=== PATIENT | female | born 2000 | race American Indian/Alaskan Native ===

== ENCOUNTER 2020-05-24 12:27 | Inpatient (IN) | payer OTHER ==
[2020-05-24] MEDS ORDERED: LACTATED RINGERS 1,000 ML IV SCH ×2 (12:30→15:00)
--- NOTE | 2020-05-24 14:56 | History and Physical Report ---
History of Present Illness Date of examination: 05/24/20 Chief complaint: IUFD History of present illness: 19-year-old -0-1-2 at 25-0/7 weeks admitted with intrauterine . One visit at [facility] OB problem list: Anemia HSV-2 Sickle cell trait Varicella nonimmune Vitamin D deficiency labs: O+ Hemoglobin 10.3 Rubella immune VDRL nonreactive HBsAg negative HIV negative Platelets 349 Varicella nonimmune Past History Past Medical History: no pertinent history Past Surgical History: no surgical history [employer]ING [employer]ATE History: other (HSV-2 positive) - Obstetrical History Expected Date of Delivery: 09/06/20 Actual Gestation: 25 Week(s) 0 Day(s) Medications and Allergies Allergies Allergy/AdvReac Type Severity Reaction Status Date / Time No Known Allergies Allergy Unverified 05/24/20 12:28 Active Meds: Active Medications Lactated Ringer's (Lactated Ringers) 1,000 mls @ 125 mls/hr IV DIRECT JUAN F Review of Systems All systems: negative (Absent movement) - Physical Exam Breasts: Positive: deferred Cardiovascular: Regular rate Lungs: Positive: Clear to auscultation Abdomen: Positive: normal appearance, soft, normal bowel sounds Genitourinary (Female): Positive: normal external genitalia Vagina: Positive: normal moisture Uterus: Positive: other (21 weeks) Anus/Rectum: Positive: normal perianal skin Extremities: Positive: normal Deep Tendon Reflex Grade: Normal +2 Results All other labs normal. Assessment and Plan IUFD Per FIGO recommendations: Vaginal misoprostol 200 mcg every 6 for a total of 4 doses. [place] Urine drug screen Grief counseling and emotional support Regular cristofer Redding MD
[2020-05-24] MEDS ORDERED: ACETAMINOPHEN 325 MG TAB PO PRN (15:00)
[2020-05-24] MEDS ORDERED: BUTORPHANOL 2 MG/1 ML INJ IV PRN ×2 (15:00)
[2020-05-24] MEDS ORDERED: miSOPROStol 25 MCG TAB VAGINAL SCH (15:00)
[2020-05-24 16:16] LABS: Hematocrit 32.1 % (30.3-42.9); Hemoglobin 10.8 gm/dl (10.1-14.3); Mean Corpuscular HGB Conc 34 % (30-34); Mean Corpuscular Volume 71 fl (79-97); Platelet Count 297 K/mm3 (140-440); Red Blood Count 4.49 M/mm3 (3.65-5.03); Red Cell Distribution Width 16.9 % (13.2-15.2)
[2020-05-24] MEDS: miSOPROStol 200 MCG TAB VG SCH ×2 (18:00→23:45)
[2020-05-24] MEDS ORDERED: MINERAL OIL 30 ML ORAL LIQD PO PRN (22:00)
[2020-05-25] MEDS ORDERED: OXYTOCIN DRIP 30,000 MILLIUNITS/500 ML BAG IV ONE (00:05)
[2020-05-25] MEDS ORDERED: miSOPROStol 200 MCG TAB PO ONE ×2 (00:15)
[2020-05-25] MEDS ORDERED: WITCH HAZEL/ GLYCERIN PAD TP PRN (00:51)
[2020-05-25] MEDS ORDERED: ONDANSETRON 4 MG/2 ML INJ IV PRN (00:51)
[2020-05-25] MEDS ORDERED: PROMETHAZINE 25 MG TAB PO PRN (00:51)
[2020-05-25] MEDS ORDERED: PROMETHAZINE 25 MG RECT SUPP PR PRN (00:51)
[2020-05-25] MEDS ORDERED: diphenhydrAMINE 25 MG CAP PO PRN (00:51)
[2020-05-25] MEDS ORDERED: MAGNESIUM HYDROXIDE (MOM) ORAL LIQD UDC PO PRN (00:51)
[2020-05-25] MEDS ORDERED: LANOLIN/ZINC/DIMETHICONE (LANSINOH) 7 GM TP PRN (00:51)
--- NOTE | 2020-05-25 01:02 | Procedure Note ---
OB Delivery Note - Delivery Date of Delivery: 05/25/20 Surgeon: HARVEY TOLENTINO Estimated blood loss: <100cc - Vaginal Delivery presentation: breech Intrapartum events: other(please specify) (LATE CARE, IUFD) Delivery induction: misoprostol Delivery augmentation: rupture of membranes Delivery monitor: external uterine Route of delivery: Delivery placenta: spontaneous Delivery cord: 3 umbilical vessels Episiotomy: none Delivery laceration: none Anesthesia: intravenous Delivery comments: Called to rm for delivery. Pt with c/o urge to push. of a nonviable female infant in breech presentation @ 000:29. was delivered with ease in the normal breech fashion. Cord was clamped x 2 and cut. Baby was shown to mom, taken to radiant warmer, wrapped in a blanket by nurse, and given back to mom. Spontaneous delivery of an intact placenta with 3CV at 000:33. FF@ U2 with fundal massage and IV Pitocin. An exploration of tears revealed none. Mom was left in a stable condition with nurse. FOB was holding infant. EBL <100cc. Placenta to pathology. - A at 1 minute: 0 (FW 595 Gms) at 5 minutes: 0 Gender: Female (FW)
[2020-05-25] MEDS: IBUPROFEN 600 MG TAB PO SCH ×3 (01:45→12:00)
--- NOTE | 2020-05-25 08:03 | Ultrasound Report ---
ULTRASOUND OBSTETRIC LIMITED INDICATION / CLINICAL INFORMATION: No heart tones. TECHNIQUE: Transabdominal ultrasound imaging. COMPARISON: None available. FINDINGS: HEART RATE (beats per minute): 0 AMNIOTIC FLUID INDEX (cm) = not measured but appears decreased. PRESENTATION: Transverse. ADDITIONAL FINDINGS: None. IMPRESSION: demise. Signer Name: John Mcneal Jr, MD Signed: 05/24/2020 2:00 PM Workstation Name: [id number]
[2020-05-25 15:01] LABS: Hematocrit 30.9 % (30.3-42.9); Hemoglobin 10.5 gm/dl (10.1-14.3)
[2020-05-25 17:23] LABS: Amphetamine Screen,Urine Negative; Benzodiazepines Screen,Urine Negative; Cannabinoid Screen,Urine Negative; Cocaine Screen,Urine Negative; Methadone Screen,Urine Negative; Opiate Screen,Urine Negative
[2020-05-25 17:29] LABS: Bilirubin,Urine NEG (Negative); Blood,Urine LG (Negative); Color,Urine Red (Yellow); Urobilinogen,Urine < 2.0 mg/dL (<2.0)
[2020-05-25 17:31] LABS: RBC,Urine > 182.0 /HPF (0.0-6.0)
[2020-05-25] MEDS ORDERED: FERROUS SULFATE 325 MG TAB PO SCH (22:00)
[2020-05-26] MEDS: IBUPROFEN 600 MG TAB PO SCH
--- NOTE | 2020-05-26 05:32 | Progress Note ---
Assessment and Plan A: day 1 S/P after induction of labor for IUFD (). Anemia. Grief process. Difficulty sleeping. P: Called lab to draw CBC on orders. Continue iron supplementation. Case management and consults due to grief process, trouble sleeping, pt.'s desire to be set up with grief counselor when she goes home. Subjective - Subjective Date of service: 05/26/20 Principal diagnosis: IUFD; day 1 S/P Interval history: day 1 S/P after induction of labor for IUFD. Patient reports small amount of lochia. Patient denies pain. CBC on orders for 04:00 this morning but was not drawn according to nurse. Lab called to come and draw CBC. Grief process, difficulty sleeping; pt. wants to talk to case management about seeing a grief counselor as outpatient. Coronavirus test negative. On iron supplement for anemia. Patient reports: appetite normal, voiding normally, pain well controlled, ambulating normally, no dizzy ambulation, no nauseated Objective - Vital Signs Latest vital signs: Vital Signs Temp Pulse Resp BP Pulse Ox 05/26/20 00:22 97.4 F L 76 20 107/62 99 05/25/20 19:43 97.5 F L 78 18 103/58 98 05/25/20 16:40 97.7 F 85 18 125/73 99 05/25/20 13:28 98.4 F 75 18 90/54 99 05/25/20 09:15 98.1 F 71 18 115/72 99 Intake and Output 05/25/20 05/25/20 05/26/20 15:59 23:59 07:59 Intake Total 360 240 241 Output Total 1500 600 650 Balance -1140 -360 -409 Intake: Oral 360 240 240 Intake, Free Water 1 Output: Urine 1500 600 650 Void 1500 600 650 Other: Total, Intake Amount 120 240 240 Total, Output Amount 900 600 650 # Voids Void 3 - Exam Cardiovascular: Present: Regular rate, No murmurs Lungs: Present: Clear to auscultation Abdomen: Present: normal appearance, soft. Absent: distention, tenderness, guarding, rigidity Uterus: Present: normal, firm, fundal height below umbilicus. Absent: bogginess, tenderness Extremities: Present: normal. Absent: tenderness
[2020-05-26 07:32] LABS: Basophils % (Auto) 0.4 % (0.0-1.8); Eosinophils # (Auto) 0.2 K/mm3 (0.0-0.4); Eosinophils % (Auto) 2.3 % (0.0-4.3); Hematocrit 29.4 % (30.3-42.9); Hemoglobin 9.8 gm/dl (10.1-14.3); Lymphocytes # (Auto) 1.9 K/mm3 (1.2-5.4); Lymphocytes % (Auto) 22.2 % (13.4-35.0); Mean Corpuscular HGB Conc 33 % (30-34); Mean Corpuscular Volume 72 fl (79-97); Monocytes # (Auto) 0.6 K/mm3 (0.0-0.8); Monocytes % (Auto) 7.5 % (0.0-7.3); Platelet Count 308 K/mm3 (140-440); Red Blood Count 4.08 M/mm3 (3.65-5.03); Red Cell Distribution Width 17.1 % (13.2-15.2)
[2020-05-26 09:27] VITALS: BP 98/62
--- NOTE | 2020-05-26 09:45 | Event Note ---
Date: 05/26/20 nurse called stating pt wants to go home and declines psyche consult and grieving appropriate. Will discharge home today
--- NOTE | 2020-05-26 16:57 | Discharge Summary ---
Providers - Providers Date of Admission: 05/24/20 12:28 Date of discharge: 05/26/20 Attending physician: HENRRY MAO MD 05/26/20 05:22 Consult to Case Management [CONS] Routine Services Needed at Discharge: Manager Heart Failure Notified:: Case Management Additional Physician Instructions: Had IUFD ( ). Wants to see grief counselor outpatient. Having trouble sleeping. 05/26/20 05:32 Consult to Mental Health [CONS] Routine Reason For Exam: Grief process and trouble sleeping (had IUFD) Primary care physician: HENRRY MAO MD Hospitalization Reason for admission: IUFD Delivery: Laceration: none (breech presentation) complications: none Discharge diagnosis: intrapartum demise baby: female Hospital course: IUFD at 25wks admitted and given induction and had uncomplicated delivery. pt evaluated until day1 and CNMW stated pt wanted to see grief counselor and later told the nurse that she wants to go home. Pt later discharged home stable as requested. Pt noted to have high proteinuria without dysuria and will need work up as out patient. Labs otherwise wnl and vitals all normal. Condition at discharge: Stable Disposition: DC-01 TO HOME OR SELFCARE - Discharge Diagnoses (1) demise > 22 weeks, delivered, current hospitalization Status: Acute Plan - Discharge Medications Prescriptions: Ibuprofen [Motrin] 800 mg PO Q8HR PRN 21 Days #30 tablet PRN Reason: Pain , Severe (7-10) - Provider Discharge Summary Additional instructions: [] Smoking cessation referral if applicable(refer to patient education folder for contact #) [] Refer to [facility] Booklet Call your doctor immediately for: * Fever > 100.5 * Heavy vaginal bleeding ( >1 pad per hour) * Severe persistent headache * Shortness of breath * Reddened, hot, painful area to leg or breast * Drainage or odor from incision. * Keep incision clean and dry at all times and follow doctor's instructions regarding bathing/showering - Follow up plan Follow up: HENRRY MAO MD [Primary Care Provider] - 7 Days Forms: [facility] Discharge Summary
== END 2020-05-26 10:32 | disposition home or self-care (01) | DRG 806 ==
LOC: TRG 12:27 → APU 12:27 → LD 12:29 → TRG 14:37 → OB 05-25 03:29
PROVIDERS: ADMIT Obstetrics & Gynecology; ATTEND Obstetrics & Gynecology
PROC: 10E0XZZ Delivery of Products of Conception, External Approach (ICD-10-PCS; principal; 2020-05-25)
DX: O36.4XX0 Maternal care for intrauterine death, not applicable or unspecified (principal); O98.52 Other viral diseases complicating childbirth; Z37.1 Single stillbirth; Z3A.25 25 weeks gestation of pregnancy; O99.02 Anemia complicating childbirth; B00.9 Herpesviral infection, unspecified; D57.3 Sickle-cell trait; Z20.822 Contact with and (suspected) exposure to COVID-19
CPT/HCPCS: 36415; 76815; 80307; 81001; 85014; 85018; 85025; 85027; 86850; 86900; 86901; 88305; G0378; U0003

== ENCOUNTER 2020-09-12 07:44 | Emergency (ER) | payer OTHER ==
[2020-09-12 07:53] VITALS: BP 112/67
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
== END 2020-09-12 09:43 | disposition home or self-care (01) ==
LOC: ED 07:44
DX: M54.5 Low back pain (principal); M54.89 Other dorsalgia; D57.1 Sickle-cell disease without crisis; V89.2XXA Person injured in unspecified motor-vehicle accident, traffic, initial encounter; W22.12XA Striking against or struck by front passenger side automobile airbag, initial encounter; Y93.89 Activity, other specified; Y92.89 Other specified places as the place of occurrence of the external cause; Y99.8 Other external cause status
CPT/HCPCS: 99281